=== PATIENT | male | born 1995 | race Caucasian/White ===

== ENCOUNTER 2020-06-23 17:15 | Emergency (ER) | payer BC | END 2020-06-23 17:20 | disposition home or self-care (01) | LOC: JVIRT 17:15 | DX: U07.1 COVID-19 (principal) | CPT/HCPCS: C9803; G2012-GT; U0003 ==

== ENCOUNTER 2020-06-23 22:30 | Emergency (ER) | payer BC ==
[2020-06-23 22:35] VITALS: BP 113/55; PULSE 51; TEMP 97; BMI 25.0
== END 2020-06-23 22:47 | disposition home or self-care (01) ==
LOC: JER 22:30
DX: U07.1 COVID-19 (principal)
CPT/HCPCS: 99283-25

== ENCOUNTER 2021-02-09 21:04 | Emergency (ER) | payer OTHER, BC ==
[2021-02-09 21:14] VITALS: BP 130/91; PULSE 105; TEMP 98.9; BMI 25.1
== END 2021-02-09 21:35 | disposition home or self-care (01) ==
LOC: FER 21:04
DX: M25.562 Pain in left knee (principal)
CPT/HCPCS: 99281-25

== ENCOUNTER 2021-02-16 19:25 | Emergency (ER) | payer BC, OTHER ==
[2021-02-16 19:31] VITALS: BP 118/71; PULSE 65; TEMP 98.7; BMI 25.1
[2021-02-16] MEDS ORDERED: ACETAMINOPHEN 500 MG TABLET (FP) PO ONE (19:36)
[2021-02-16] MEDS ORDERED: LIDOCAINE 5% TOPICAL PATCH TP ONE (19:36)
[2021-02-16] MEDS ORDERED: LIDOCAINE 5% TOPICAL PATCH ONE (19:37)
[2021-02-16] MEDS ORDERED: ACETAMINOPHEN 325 MG TABLET (FP) ONE (19:37)
[2021-02-16] MEDS ORDERED: LIDOCAINE PATCH REMOVAL MC SCH (22:00)
== END 2021-02-16 19:47 | disposition home or self-care (01) ==
LOC: FER 19:25
DX: S13.4XXA Sprain of ligaments of cervical spine, initial encounter (principal)
CPT/HCPCS: 99283-25